=== PATIENT | female | born 1995 | race African-American/Black ===

== ENCOUNTER 2017-03-19 18:28 | Inpatient (IN) | payer BC, OTHER ==
[~2017-03-19] VITALS: Ht 170.2 cm; Wt 92.1 kg
[2017-03-19] MEDS ORDERED: HYDROmorphone 1mg/ml Carpuject IVP ONE ×3 (19:00→23:00)
[2017-03-19 20:17] LABS: APPEARANCE,URINE CLEAR; KETONES,URINE NEGATIVE (NEGATIVE); LEUKOCYTE ESTERASE ,URINE 1+ (NEGATIVE); NITRITE,URINE NEGATIVE (NEGATIVE); PH,URINE 5 (4.5-8.0); PROTEIN,URINE 2+ (NEGATIVE); UROBILINOGEN,URINE NORMAL MG/DL (0.0-1.0)
[2017-03-19 20:19] LABS: MEAN CORPUSCULAR HGB CONC 31.9 G/DL (32.0-36.0); MEAN CORPUSCULAR VOLUME 82 FL (80-99); MEAN PLATELET VOLUME 10.1 FL (6.5-10.1); PLATELET COUNT 245 K/UL (150-450); RED BLOOD COUNT 4.66 M/UL (4.20-5.40); RED CELL DISTRIBUTION WIDTH 14.7 % (11.6-14.8); WHITE BLOOD COUNT 18.9 K/UL (4.8-10.8)
[2017-03-19 20:21] LABS: BACTERIA,URINE FEW /HPF; RBC,URINE 0-2 /HPF (0 - 2); SQUAMOUS EPITHELIAL CELL,UR FEW /LPF (NONE/OCC)
[2017-03-19 20:32] LABS: ALANINE AMINOTRANSFERASE 10 U/L (3-33); ANION GAP 15 (5-15); ASPARTATE AMINO TRANSFERASE 15 U/L (5-40); CALCIUM 9.6 mg/dL (8.6-10.2); CARBON DIOXIDE 19 mEQ/L (20-30); CHLORIDE 104 mEQ/L (98-107); GLOMERULAR FILTRATION RATE > 60 mL/min (>60); HEMOLYSIS 38; LIPASE 24 U/L (< 60); POTASSIUM 4.5 mEQ/L (3.4-4.9); SODIUM 138 mEQ/L (135-145); TOTAL PROTEIN 8.5 g/dL (6.6-8.7)
[2017-03-19 20:42] LABS: BAND NEUTROPHILS % (MANUAL) 0 % (0-8); BASOPHILS % (MANUAL) 0 % (0-2); EOSINOPHILS % (MANUAL) 0 % (0-3); LYMPHOCYTES % (MANUAL) 5 % (20-45); NEUTROPHILS % (MANUAL) 93 % (45-75); PLATELET ESTIMATE ADEQUATE; PLATELET MORPHOLOGY NORMAL; TOTAL CELLS COUNTED 100
[2017-03-19 22:31] VITALS: BP 113/59
--- NOTE | 2017-03-19 23:32 | Emergency Room Report ---
History of Present Illness General Chief Complaint: Abdominal Pain Source: Patient, EMS (PARAM FRANKLIN M.D.) Present Illness HPI 22-year-old female presents to ED for evaluation. States she's been having abdominal pain x2 days. Pain is sharp. 10 out of 10. Nonradiating. Patient notes pain near her colostomy site. Patient had a colostomy performed in August at [facility] because of "colitis". Patient was scheduled to have reanastomosis of her colon in October but was told by surgeon there is too much scar tissue. The surgery had to be delayed. Patient notes nausea and vomiting. Denies fevers or chills. No other aggravating or relieving factors. Denies any other associated symptoms (PARAM FRANKLIN M.D.) Allergies: Coded Allergies: METRONIDAZOLE (Verified Allergy, Unknown, 03/19/17) Patient History Past Medical History: other Past Surgical History: other - colostomy Pertinent Family History: none Social History: Denies: alcohol use, drug use, smoking Last Menstrual Period: 02/21-02/26 Now: No Immunizations: UTD Reviewed Nursing Documentation: PMH: Agreed, PSxH: Agreed (PARAM FRANKLIN M.D.) Nursing Documentation-PMH Past Medical History: No History, Except For (PARAM FRANKLIN M.D.) Review of Systems All Other Systems: negative except mentioned in HPI (PARAM FRANKLIN M.D.) Physical Exam Vital Signs Date Time Temp Pulse Resp B/P Pulse Ox O2 Delivery O2 Flow Rate FiO2 03/19/17 18:19 98.1 80 14 97/63 100 Room Air Sp02 EP Interpretation: reviewed, normal General Appearance: no apparent distress, alert, GCS 15, non-toxic Head: normocephalic, atraumatic Eyes: bilateral eye PERRL, bilateral eye normal inspection ENT: hearing grossly normal, normal pharynx, no angioedema, normal voice Neck: full range of motion, supple/symm/no masses Respiratory: chest non-tender, lungs clear, normal breath sounds, speaking full sentences Cardiovascular #1: regular rate, rhythm, no edema Cardiovascular #2: 2+ carotid (R), 2+ carotid (L), 2+ radial (R), 2+ radial (L) , 2+ dorsalis pedis (R), 2+ dorsalis pedis (L) Gastrointestinal: normal bowel sounds, soft, non-distended, no guarding, no rebound, tenderness, other - colostomy patent Rectal: deferred Genitourinary: normal inspection, no CVA tenderness Musculoskeletal: back normal, gait/station normal, normal range of motion, non- tender Neurologic: alert, oriented x3, responsive, motor strength/tone normal, sensory intact, speech normal Psychiatric: judgement/insight normal, memory normal, mood/affect normal, no suicidal/homicidal ideation Reflexes: 3+ bicep (R), 3+ bicep (L), 3+ tricep (R), 3+ tricep (L), 3+ knee (R) , 3+ knee (L) Skin: normal color, no rash, warm/dry, well hydrated Lymphatic: no adenopathy (PARAM FRANKLIN M.D.) Medical Decision Making Diagnostic Impression: Primary Impression: Small bowel obstruction Additional Impression: H/O colostomy Labs Test 03/19/17 20:00 White Blood Count 18.9 K/UL (4.8-10.8) Red Blood Count 4.66 M/UL (4.20-5.40) Hemoglobin 12.1 G/DL (12.0-16.0) Hematocrit 38.0 % (37.0-47.0) Mean Corpuscular Volume 82 FL (80-99) Mean Corpuscular Hemoglobin 26.0 PG (27.0-31.0) Mean Corpuscular Hemoglobin Concent 31.9 G/DL (32.0-36.0) Red Cell Distribution Width 14.7 % (11.6-14.8) Platelet Count 245 K/UL (150-450) Mean Platelet Volume 10.1 FL (6.5-10.1) Neutrophils (%) (Auto) % (45.0-75.0) Lymphocytes (%) (Auto) % (20.0-45.0) Monocytes (%) (Auto) % (1.0-10.0) Eosinophils (%) (Auto) % (0.0-3.0) Basophils (%) (Auto) % (0.0-2.0) Differential Total Cells Counted 100 Neutrophils % (Manual) 93 % (45-75) Lymphocytes % (Manual) 5 % (20-45) Monocytes % (Manual) 2 % (1-10) Eosinophils % (Manual) 0 % (0-3) Basophils % (Manual) 0 % (0-2) Band Neutrophils 0 % (0-8) Platelet Estimate Adequate Platelet Morphology Normal Red Blood Cell Morphology Normal Urine Color Pale yellow Urine Appearance Clear Urine pH 5 (4.5-8.0) Urine Specific [place] 1.020 (1.005-1.035) Urine Protein 2+ (NEGATIVE) Urine Glucose (UA) Negative (NEGATIVE) Urine Ketones Negative (NEGATIVE) Urine Occult Blood Negative (NEGATIVE) Urine Nitrite Negative (NEGATIVE) Urine Bilirubin Negative (NEGATIVE) Urine Urobilinogen Normal MG/DL (0.0-1.0) Urine Leukocyte Esterase 1+ (NEGATIVE) Urine RBC 0-2 /HPF (0 - 2) Urine WBC 2-4 /HPF (0 - 2) Urine Squamous Epithelial Cells Few /LPF (NONE/OCC) Urine Bacteria Few /HPF (NONE) Urine HCG, Qualitative Negative Sodium Level 138 mEQ/L (135-145) Potassium Level 4.5 mEQ/L (3.4-4.9) Chloride Level 104 mEQ/L (98-107) Carbon Dioxide Level 19 mEQ/L (20-30) Anion Gap 15 (5-15) Blood Urea Nitrogen 10 mg/dL (7-23) Creatinine 1.0 mg/dL (0.5-0.9) Estimat Glomerular Filtration Rate > 60 mL/min (>60) Glucose Level 141 mg/dL (74-106) Calcium Level 9.6 mg/dL (8.6-10.2) Total Bilirubin 0.3 mg/dL (0.0-1.2) Aspartate Amino Transf (AST/SGOT) 15 U/L (5-40) Alanine Aminotransferase (ALT/SGPT) 10 U/L (3-33) Alkaline Phosphatase 58 U/L (35-104) Total Protein 8.5 g/dL (6.6-8.7) Albumin 4.3 g/dL (3.5-5.2) Globulin 4.2 g/dL Albumin/Globulin Ratio 1.0 (1.0-2.7) Lipase 24 U/L (< 60) Human Chorionic Gonadotropin, Quant < 1 mIU/mL (PARAM FRANKLIN M.D.) ER Course I agree with the above assessment by Dr. Franklin. Unable to contact PMD surgeon (Sherman Díaz). [facility] closed to saturation without beds. Discussed with Transfer [facility]. Antibiotics begun (leukocytosis). Still pain. Dilaudid repeated (high pain tolerance). Exam - abdomen is soft. There is some guarding, but no referred pain. No rebound. At this time, not a surgical abdomen. Discussed with Dr. Yang who agrees to consult. I stated he does not need to come in tonight. Discussed with Dr. Hoskins. BP slightly low after Dilaudid. Hydration continued. BP improved. (Dave Rosen M.D.) CT/MRI/US Diagnostic Results CT/MRI/US Diagnostic Results : Imaging Test Ordered: CT A/P Impression evidence of bowel obstruction with transition point in RLQ near colostomy site (PARAM FRANKLIN M.D.) Last Vital Signs Date Time Temp Pulse Resp B/P Pulse Ox O2 Delivery O2 Flow Rate FiO2 03/19/17 22:31 98.1 85 13 113/59 100 Room Air Status: improved (PARAM FRANKLIN M.D.) Last Vital Signs Date Time Temp Pulse Resp B/P Pulse Ox O2 Delivery O2 Flow Rate FiO2 03/20/17 04:00 98.7 80 20 132/72 98 Room Air Status: improved (Dave Rosen M.D.) Disposition: ADMITTED INPATIENT Condition: Serious Referrals: NON PHYSICIAN (PCP) PARAM FRANKLIN M.D. Mar 19, 2017 23:32 Dave Rosen M.D. Mar 20, 2017 00:59
[2017-03-20] MEDS ORDERED: Cefepime 1gm vial ONE (00:29)
[2017-03-20] MEDS ORDERED: Cefepime HCl 1 GM in D5W 55 ML IVPB SCH (00:30)
[2017-03-20] MEDS ORDERED: HYDROmorphone 1mg/ml Carpuject IVP PRN ×2 (00:30→17:00)
[2017-03-20] MEDS ORDERED: Cefepime HCl 1 GM in D5W 55 ML IVPB ONE (00:30)
[2017-03-20 00:36] VITALS: BP 100/46
[2017-03-20] MEDS ORDERED: AMBIEN10 M1 ORAL (00:52)
[2017-03-20] MEDS ORDERED: TOPIRAMATE100 MG ORAL (00:52)
[2017-03-20] MEDS ORDERED: SYNTHROID25 MCG ORAL (00:52)
[2017-03-20] MEDS ORDERED: LEXAPRO20 MG ORAL (00:52)
[2017-03-20 04:00] VITALS: BP 132/72
[2017-03-20 08:07] VITALS: BP 136/76
[2017-03-20] MEDS: Cefepime 2gm/D5W 110ml IV SCH ×4 (09:00→20:54)
[2017-03-20] MEDS: Heparin 5000 units/ml inj SUBQ SCH ×2 (09:02→20:57)
--- NOTE | 2017-03-20 10:45 | General Progress Note ---
Progress Note Progress Note Chart reviewed, pt examined, consult dictated, case discussed with her primary surgeon, Dr Díaz. Pt has a partial SBO at the ileostomy site. As per Dr Díaz's instructions we have inserted a 30 Fr red Martínez catheter in the ileostomy resulting in 1 liter of drainage. We will obtain a KUB now. Sae Yang MD Mar 20, 2017 10:45
[2017-03-20 11:46] VITALS: BP 105/62
--- NOTE | 2017-03-20 13:03 | Diagnostic Imaging Report ---
Indication: Abdominal pain and distention Comparison: None Single view of the abdomen obtained Findings: Some dilated small bowel demonstrated within the abdomen. There is a catheter projected over the right lower quadrant. The tip of the catheter is projected over a lead shield which obscures the pelvis. Impression: Distended small bowel are nonspecific: Obstruction versus ileus. Right lower quadrant ileostomy catheter.
--- NOTE | 2017-03-20 13:35 | History and Physical ---
History of Present Illness General Date patient seen: Mar 20, 2017 Time patient seen: 13:35 Reason for Hospitalization: Abdominal Pain Present Illness HPI 21 year old with pmh of ulcerative colitis s/p laparoscopic total colectomy on 07/2016 s/p ileostomy revision 10/2016, hypothyroidism, and MDD/anxiety who presents with worsening abd pain. She states she's been having abdominal pain x2 days. Pain is sharp lower abdominal, 10/10 in intensity, nonradiating.Patient notes pain near her ostomy site. Patient was scheduled to have reanastomosis of her colon in October but was told by surgeon there is too much scar tissue and that she needed to lose weight first. The surgery had to be delayed. Patient notes nausea and vomiting. Denies fevers or chills. No other aggravating or relieving factors. Denies any other associated symptoms. Allergies: Coded Allergies: METRONIDAZOLE (Verified Allergy, Unknown, 03/19/17) Medication History Scheduled Escitalopram Oxalate* (Lexapro*), 20 MG ORAL BEDTIME, (Reported) Levothyroxine Sodium* (Synthroid*), 50 MCG ORAL DAILY, (Reported) Topiramate* (Topamax*), 200 MG ORAL BEDTIME, (Reported) Scheduled PRN Zolpidem Tartrate* (Ambien*), 10 MG ORAL HS PRN for Insomnia, (Reported) Patient History Healthcare decision maker Resuscitation status Full Code Advanced Directive on File Yes Past Medical/Surgical History Past Medical/Surgical History: (1) Ulcerative colitis (2) Hypothyroidism (3) Anxiety (4) Depression Family History Family History: Patient reports no known family medical history. Social History Social History: (1) No significant social history Review of Systems Constitutional: Reports: no symptoms Eye: Reports: no symptoms ENT: Reports: no symptoms Respiratory: Reports: no symptoms Cardiovascular: Reports: no symptoms Gastrointestinal: Reports: abdominal pain, nausea, vomiting Genitourinary: Reports: no symptoms Musculoskeletal: Reports: no symptoms Skin: Reports: no symptoms Psychiatric: Reports: no symptoms Neurological: Reports: no symptoms Endocrine: Reports: no symptoms Hematologic/Lymphatic: Reports: no symptoms Physical Exam Physical Exam Narrative General: alert, cooperative, no distress, appears stated age Head: normocephalic, without obvious abnormality, atraumatic Eyes: conjunctivae/corneas clear. PERRL, EOM's intact Throat: lips, mucosa, and tongue normal. MMM Neck: supple, symmetrical, trachea midline, and no JVD Lungs: clear to auscultation bilaterally Heart: regular rate and rhythm, S1, S2 normal, no murmur, click, rub or gallop Abdomen: soft, +TTP of lower abd, non-distended, +ostomy c/d/i Extremities: extremities normal, atraumatic, no cyanosis or edema Pulses: 2+ and symmetric Skin: skin color, texture, turgor normal; no rashes or lesions Neurologic: grossly normal, no focal deficits Last 24 Hour Vital Signs Date Time Temp Pulse Resp B/P Pulse Ox O2 Delivery O2 Flow Rate FiO2 03/20/17 11:46 98.2 78 21 105/62 98 Room Air 03/20/17 11:12 98.2 03/20/17 08:34 98.2 03/20/17 08:07 98.2 90 20 136/76 95 Room Air 03/20/17 04:00 98.7 80 20 132/72 98 Room Air 03/20/17 01:04 98.1 83 14 100/46 96 Room Air 03/20/17 00:36 98.1 83 14 100/46 96 Room Air 03/19/17 23:54 98.1 03/19/17 23:54 98.1 03/19/17 23:53 98.1 03/19/17 22:31 98.1 85 13 113/59 100 Room Air 03/19/17 18:19 98.1 80 14 97/63 100 Room Air Intake and Output 03/19/17 03/20/17 19:00 07:00 Intake Total 1300 ml Balance 1300 ml Intake IV Total 1300 ml # Voids 2 Laboratory Tests Test 03/19/17 20:00 White Blood Count 18.9 K/UL (4.8-10.8) H Red Blood Count 4.66 M/UL (4.20-5.40) Hemoglobin 12.1 G/DL (12.0-16.0) Hematocrit 38.0 % (37.0-47.0) Mean Corpuscular Volume 82 FL (80-99) Mean Corpuscular Hemoglobin 26.0 PG (27.0-31.0) L Mean Corpuscular Hemoglobin Concent 31.9 G/DL (32.0-36.0) L Red Cell Distribution Width 14.7 % (11.6-14.8) Platelet Count 245 K/UL (150-450) Mean Platelet Volume 10.1 FL (6.5-10.1) Neutrophils (%) (Auto) % (45.0-75.0) Lymphocytes (%) (Auto) % (20.0-45.0) Monocytes (%) (Auto) % (1.0-10.0) Eosinophils (%) (Auto) % (0.0-3.0) Basophils (%) (Auto) % (0.0-2.0) Differential Total Cells Counted 100 Neutrophils % (Manual) 93 % (45-75) H Lymphocytes % (Manual) 5 % (20-45) L Monocytes % (Manual) 2 % (1-10) Eosinophils % (Manual) 0 % (0-3) Basophils % (Manual) 0 % (0-2) Band Neutrophils 0 % (0-8) Platelet Estimate Adequate Platelet Morphology Normal Red Blood Cell Morphology Normal Urine Color Pale yellow Urine Appearance Clear Urine pH 5 (4.5-8.0) Urine Specific [place] 1.020 (1.005-1.035) Urine Protein 2+ (NEGATIVE) H Urine Glucose (UA) Negative (NEGATIVE) Urine Ketones Negative (NEGATIVE) Urine Occult Blood Negative (NEGATIVE) Urine Nitrite Negative (NEGATIVE) Urine Bilirubin Negative (NEGATIVE) Urine Urobilinogen Normal MG/DL (0.0-1.0) Urine Leukocyte Esterase 1+ (NEGATIVE) H Urine RBC 0-2 /HPF (0 - 2) Urine WBC 2-4 /HPF (0 - 2) Urine Squamous Epithelial Cells Few /LPF (NONE/OCC) Urine Bacteria Few /HPF (NONE) Urine HCG, Qualitative Negative Sodium Level 138 mEQ/L (135-145) Potassium Level 4.5 mEQ/L (3.4-4.9) Chloride Level 104 mEQ/L (98-107) Carbon Dioxide Level 19 mEQ/L (20-30) L Anion Gap 15 (5-15) Blood Urea Nitrogen 10 mg/dL (7-23) Creatinine 1.0 mg/dL (0.5-0.9) H Estimat Glomerular Filtration Rate > 60 mL/min (>60) Glucose Level 141 mg/dL (74-106) H Calcium Level 9.6 mg/dL (8.6-10.2) Total Bilirubin 0.3 mg/dL (0.0-1.2) Aspartate Amino Transf (AST/SGOT) 15 U/L (5-40) Alanine Aminotransferase (ALT/SGPT) 10 U/L (3-33) Alkaline Phosphatase 58 U/L (35-104) Total Protein 8.5 g/dL (6.6-8.7) Albumin 4.3 g/dL (3.5-5.2) Globulin 4.2 g/dL Albumin/Globulin Ratio 1.0 (1.0-2.7) Lipase 24 U/L (< 60) Human Chorionic Gonadotropin, Quant < 1 mIU/mL Height (Feet): 5 Height (Inches): 7.00 Weight (Pounds): 203 Medications Current Medications Medications (Trade) Dose Ordered Sig/Xander Route PRN Reason Start Time Stop Time Status Last Admin Dose Admin Cefepime HCl/ Dextrose (Maxipime/D5W) 110 ml @ 220 mls/hr EVERY 12 HOURS IV 03/20/17 09:00 03/27/17 08:59 03/20/17 09:00 Dextrose STAT PRN IV Hypoglycemia 03/20/17 00:30 04/19/17 00:29 Heparin Sodium (Porcine) (Heparin 5000 units/ml) 5,000 units EVERY 12 HOURS SUBQ 03/20/17 09:00 04/19/17 08:59 03/20/17 09:02 Hydromorphone HCl (Dilaudid) 1 mg Q4H PRN IVP Moderate Pain (Pain Scale 4-6) 03/20/17 00:30 03/27/17 00:29 Hydromorphone HCl (Dilaudid) 2 mg Q2H PRN IVP Severe Pain (Pain Scale 7-10) 03/20/17 10:15 03/27/17 10:14 03/20/17 12:32 Ondansetron HCl (Zofran) 4 mg Q4H PRN IVP Nausea & Vomiting 03/20/17 07:30 04/19/17 07:29 03/20/17 08:04 Sodium Chloride (Sodium Chloride 1000ml bag) 1,000 ml @ 75 mls/hr [id number] 03/20/17 01:30 04/19/17 01:29 03/20/17 02:19 Assessment/Plan Problem List: (1) Small bowel obstruction ICD Codes: K56.69 - Other intestinal obstruction SNOMED: 714066946 (2) Leukocytosis ICD Codes: D72.829 - Elevated white blood cell count, unspecified SNOMED: 706640231, 102409799 (3) Ulcerative colitis ICD Codes: K51.90 - Ulcerative colitis, unspecified, without complications SNOMED: 40441794 (4) Anxiety ICD Codes: F41.9 - Anxiety disorder, unspecified SNOMED: 86724429 (5) Depression ICD Codes: F32.9 - Major depressive disorder, single episode, unspecified SNOMED: 19666545 (6) Hypothyroidism ICD Codes: E03.9 - Hypothyroidism, unspecified SNOMED: 27448884 Status: stable Assessment/Plan CT a/p showed evidence of bowel obstruction with transition point in RLQ near colostomy site Admit inpt Surgery consulted GI consulted NPO IVFs Serial abd exams Pain mgmt consulted as pt c/o poor pain control s/p NGT placement s/p red rubber catheter in the ileostomy for decompression w/ 1L drainage Monitor output Repeat KUB Cont home meds HSQ for DVT ppx FULL CODE D/w surgery, GI, pt/family regarding mgmt and idspo [place] Denise M.D. Mar 20, 2017 13:35
--- NOTE | 2017-03-20 14:31 | Consultation ---
DATE OF CONSULTATION: 03/20/2017 SURGICAL CONSULTATION REASON FOR CONSULTATION: Small bowel obstruction. HISTORY OF PRESENT ILLNESS: This is a 22-year-old, 0, para 0, female, underwent a subtotal colectomy with end ileostomy and Jameel procedure seven months ago at [facility]. The patient had a 7-year history of ulcerative colitis. She had studies in October of 2016 with the intent of forming an ileal J-pouch, but this could not be done due to too much swelling of the mesenteric fat. The patient presented with a two-day history of cramping abdominal pain, nausea, and vomiting. She noted decreased output from the ileostomy. She states that she underwent an endoscopy of the ileostomy 9 days ago. PAST MEDICAL HISTORY: See history of present illness. MEDICATIONS: Include Lexapro 20 mg at bedtime, levothyroxine 50 mcg daily, Topamax 200 mg at bedtime, Ambien 10 mg p.r.n. insomnia. ALLERGIES: Metronidazole. SOCIAL HISTORY: Tobacco, none. Alcohol, none. Occupation, college student. FAMILY HISTORY: Negative for diabetes, heart disease, and malignancy. REVIEW OF SYSTEMS: Essentially negative. She is a 0, para 0 female. Last menstrual period was 02/21/2017. PHYSICAL EXAMINATION: GENERAL: Reveals a morbidly obese female, complaining of abdominal pain. VITAL SIGNS: Temperature 98.2 degrees, blood pressure 136/76, pulse 90, and respirations 20. HEENT: Normocephalic. Pupils are equal and reactive to light. There was no scleral icterus. NECK: Supple without adenopathy. LUNGS: Clear. HEART: Showed a regular rhythm. ABDOMEN: Abdomen was protuberant. Palpation reveals some tenderness throughout the ileostomy is in place in the right lower quadrant. There is minimal liquid and some old stool in the bag. EXTREMITIES: Showed no edema. ADMISSION LABS: Urinalysis was negative. CBC showed a white blood count of 18,900, hemoglobin 12.1 g%, hematocrit 38%, and platelet count 245,000. Clinical chemistry showed a sodium of 138, potassium 4.5, chloride 104, bicarbonate 19, BUN 10, creatinine 1.0, and glucose 141. Liver panel showed a total bilirubin of 0.3. SGOT 10 and SGPT 15. Alkaline phosphatase is 58. Lipase is normal at 24. Quantitative HCG was less than 1. A CT scan of the abdomen and pelvis showed mildly dilated small bowel throughout. There was no free air. There was no stranding or abscess formation. IMPRESSION: Partial small bowel obstruction, possibly secondary to ileostomy site. PLAN: We have conferred with Dr. Díaz her original surgeon, he advises us to insert the red rubber catheter in the ileostomy to try to obtain decompression. We will also place a nasogastric tube as soon as possible. Sae Yang M.D. DR: TERRI JOB#: [id number] CC: TOYA
--- NOTE | 2017-03-20 15:48 | Diagnostic Imaging Report ---
Indication: Abdominal pain Technique: Continuous helical transaxial imaging of the abdomen and pelvis was obtained from the lung bases to the pubic symphysis during intravenous contrast administration. Coronal 2-D reformats were also obtained. Study obtained in a Siemens sensation [address] Total Dose length Product (DLP): [address] Dose Index Volume (CTDIvol): 20 mGy Comparison: None Findings: Mild to moderate dilatation of small bowel loops noted diffusely. Small bowel is also fluid-filled. There is an apparent transition at the ileostomy site. However one should correlate with the operative ileostomy clinically before making a determination that this is due to bowel obstruction. In addition, oral contrast was not administered, which would've been helpful. There is no free air. There is no free fluid or wall thickening. Patient is had a total colectomy. The rectal stump noted. The uterus and urinary bladder are grossly unremarkable in appearance. There is a small left ovarian cyst measuring about 2.5 cm incidentally noted. Solid organs including the liver, spleen, pectus, kidneys appear normal. Gallbladder is unremarkable. There is mild left basal atelectasis. Impression: Possible bowel obstruction at the ileostomy site. Please correlate with the ileostomy output. Evaluation with oral contrast may be of benefit and is recommended. It is possible that the findings on the basis of a diffuse generalized ileus/enteritis. Status post total colectomy 2.5 cm cyst left ovary mild left basal atelectasis Findings discussed and reviewed with Dr. Yang The CT scanner at [facility] is accredited by the [employer] and the scans are performed using dose optimization techniques as appropriate to a performed exam including Automatic Exposure control.
[2017-03-20 15:53] VITALS: BP 107/63
--- NOTE | 2017-03-20 16:07 | GI Initial Consult Note ---
History of Present Illness General Date patient seen: Mar 20, 2017 Time patient seen: 11:00 Reason for Hospitalization: Abdominal Pain Referring physician: ALLISON MAGALLANES Reason for Consultation: ABODMINAL PAIN Present Illness Home Meds Reported Medications Escitalopram Oxalate* (LEXAPRO*) 20 Mg Tablet, 20 MG ORAL BEDTIME, TAB 03/20/17 Topiramate* (TOPAMAX*) 100 Mg Tablet, 200 MG ORAL BEDTIME, #60 TAB 0 Refills 03/20/17 Zolpidem Tartrate* (AMBIEN*) 10 Mg Tablet, 10 MG ORAL HS Y for Insomnia, TAB 03/20/17 Levothyroxine Sodium* (SYNTHROID*) 25 Mcg Tablet, 50 MCG ORAL DAILY, TAB Take in the morning on an empty stomach, at least 30 minutes before food. 03/20/17 Allergies: Coded Allergies: METRONIDAZOLE (Verified Allergy, Unknown, 03/19/17) Physical Exam Vital Signs Date Time Temp Pulse Resp B/P Pulse Ox O2 Delivery O2 Flow Rate FiO2 03/19/17 18:19 98.1 80 14 97/63 100 Room Air Labs Laboratory Tests Test 03/19/17 20:00 White Blood Count 18.9 K/UL (4.8-10.8) H Red Blood Count 4.66 M/UL (4.20-5.40) Hemoglobin 12.1 G/DL (12.0-16.0) Hematocrit 38.0 % (37.0-47.0) Mean Corpuscular Volume 82 FL (80-99) Mean Corpuscular Hemoglobin 26.0 PG (27.0-31.0) L Mean Corpuscular Hemoglobin Concent 31.9 G/DL (32.0-36.0) L Red Cell Distribution Width 14.7 % (11.6-14.8) Platelet Count 245 K/UL (150-450) Mean Platelet Volume 10.1 FL (6.5-10.1) Neutrophils (%) (Auto) % (45.0-75.0) Lymphocytes (%) (Auto) % (20.0-45.0) Monocytes (%) (Auto) % (1.0-10.0) Eosinophils (%) (Auto) % (0.0-3.0) Basophils (%) (Auto) % (0.0-2.0) Differential Total Cells Counted 100 Neutrophils % (Manual) 93 % (45-75) H Lymphocytes % (Manual) 5 % (20-45) L Monocytes % (Manual) 2 % (1-10) Eosinophils % (Manual) 0 % (0-3) Basophils % (Manual) 0 % (0-2) Band Neutrophils 0 % (0-8) Platelet Estimate Adequate Platelet Morphology Normal Red Blood Cell Morphology Normal Urine Color Pale yellow Urine Appearance Clear Urine pH 5 (4.5-8.0) Urine Specific [place] 1.020 (1.005-1.035) Urine Protein 2+ (NEGATIVE) H Urine Glucose (UA) Negative (NEGATIVE) Urine Ketones Negative (NEGATIVE) Urine Occult Blood Negative (NEGATIVE) Urine Nitrite Negative (NEGATIVE) Urine Bilirubin Negative (NEGATIVE) Urine Urobilinogen Normal MG/DL (0.0-1.0) Urine Leukocyte Esterase 1+ (NEGATIVE) H Urine RBC 0-2 /HPF (0 - 2) Urine WBC 2-4 /HPF (0 - 2) Urine Squamous Epithelial Cells Few /LPF (NONE/OCC) Urine Bacteria Few /HPF (NONE) Urine HCG, Qualitative Negative Sodium Level 138 mEQ/L (135-145) Potassium Level 4.5 mEQ/L (3.4-4.9) Chloride Level 104 mEQ/L (98-107) Carbon Dioxide Level 19 mEQ/L (20-30) L Anion Gap 15 (5-15) Blood Urea Nitrogen 10 mg/dL (7-23) Creatinine 1.0 mg/dL (0.5-0.9) H Estimat Glomerular Filtration Rate > 60 mL/min (>60) Glucose Level 141 mg/dL (74-106) H Calcium Level 9.6 mg/dL (8.6-10.2) Total Bilirubin 0.3 mg/dL (0.0-1.2) Aspartate Amino Transf (AST/SGOT) 15 U/L (5-40) Alanine Aminotransferase (ALT/SGPT) 10 U/L (3-33) Alkaline Phosphatase 58 U/L (35-104) Total Protein 8.5 g/dL (6.6-8.7) Albumin 4.3 g/dL (3.5-5.2) Globulin 4.2 g/dL Albumin/Globulin Ratio 1.0 (1.0-2.7) Lipase 24 U/L (< 60) Human Chorionic Gonadotropin, Quant < 1 mIU/mL Current Medications Current Medications Medications (Trade) Dose Ordered Sig/Xander Route PRN Reason Start Time Stop Time Status Last Admin Dose Admin Cefepime HCl/ Dextrose (Maxipime/D5W) 110 ml @ 220 mls/hr EVERY 12 HOURS IV 03/20/17 09:00 03/27/17 08:59 03/20/17 09:00 Dextrose STAT PRN IV Hypoglycemia 03/20/17 00:30 04/19/17 00:29 Escitalopram Oxalate 30 mg 30 mg QHS ORAL 03/20/17 21:00 04/19/17 20:59 Heparin Sodium (Porcine) (Heparin 5000 units/ml) 5,000 units EVERY 12 HOURS SUBQ 03/20/17 09:00 04/19/17 08:59 03/20/17 09:02 Hydromorphone HCl (Dilaudid) 1 mg Q4H PRN IVP Moderate Pain (Pain Scale 4-6) 03/20/17 00:30 03/27/17 00:29 Hydromorphone HCl (Dilaudid) 2 mg Q2H PRN IVP Severe Pain (Pain Scale 7-10) 03/20/17 10:15 03/27/17 10:14 03/20/17 14:26 Levothyroxine Sodium (Synthroid) 50 mcg ACBREAKFAST ORAL 03/21/17 06:30 04/20/17 06:29 Ondansetron HCl (Zofran) 4 mg Q4H PRN IVP Nausea & Vomiting 03/20/17 07:30 04/19/17 07:29 03/20/17 08:04 Sodium Chloride (Sodium Chloride 1000ml bag) 1,000 ml @ 125 mls/hr Q8H IVLG 03/20/17 16:15 04/19/17 16:14 Topiramate (Topamax) 200 mg BEDTIME ORAL 03/20/17 21:00 04/19/17 20:59 Zolpidem Tartrate (Ambien) 5 mg QHS ORAL 03/20/17 21:00 04/19/17 20:59 Emi Pierre N.PEdison Mar 20, 2017 16:07
--- NOTE | 2017-03-20 16:13 | GI Initial Consult Note ---
History of Present Illness General Date patient seen: Mar 20, 2017 Time patient seen: 10:00 Reason for Hospitalization: Abdominal Pain Referring physician: ALLISON MAGALLANES Reason for Consultation: ABODMINAL PAIN Present Illness HPI 22-year-old female presents to ED for evaluation. States she's been having abdominal pain x2 days. Pain is sharp. 10 out of 10. Nonradiating. Patient notes pain near her colostomy site. Patient had a colostomy performed in August at [facility] because of "colitis". Patient was scheduled to have reanastomosis of her colon in October but was told by surgeon there is too much scar tissue. The surgery had to be delayed. Patient notes nausea and vomiting. Denies fevers or chills. No other aggravating or relieving factors. Denies any other associated symptoms GI Consult. HPI as noted above. GI consulted for abdominal pain 2/2 to possible obstruction in RLQ near colostomy as shown on CT AP. Presents today with colostomy present and leukocytosis. Patient was seen by surgery where a Red Spenser was inserted into the colostomy site and yield a large amount diarrhea. The patient expressed relief as well. Home Meds Reported Medications Escitalopram Oxalate* (LEXAPRO*) 20 Mg Tablet, 20 MG ORAL BEDTIME, TAB 03/20/17 Topiramate* (TOPAMAX*) 100 Mg Tablet, 200 MG ORAL BEDTIME, #60 TAB 0 Refills 03/20/17 Zolpidem Tartrate* (AMBIEN*) 10 Mg Tablet, 10 MG ORAL HS Y for Insomnia, TAB 03/20/17 Levothyroxine Sodium* (SYNTHROID*) 25 Mcg Tablet, 50 MCG ORAL DAILY, TAB Take in the morning on an empty stomach, at least 30 minutes before food. 03/20/17 Med list reviewed/reconciled: Yes Allergies: Coded Allergies: METRONIDAZOLE (Verified Allergy, Unknown, 03/19/17) Patient History History Provided By: Patient, Medical Record PM Narrative Past Medical History: other Past Surgical History: other - colostomy Pertinent Family History: none Social History: Denies: alcohol use, drug use, smoking Last Menstrual Period: 02/21-02/26 Now: No Immunizations: UTD Review of Systems All Other Systems: negative except mentioned in HPI Physical Exam Vital Signs Date Time Temp Pulse Resp B/P Pulse Ox O2 Delivery O2 Flow Rate FiO2 03/19/17 18:19 98.1 80 14 97/63 100 Room Air Sp02 EP Interpretation: reviewed Labs Laboratory Tests Test 03/19/17 20:00 White Blood Count 18.9 K/UL (4.8-10.8) H Red Blood Count 4.66 M/UL (4.20-5.40) Hemoglobin 12.1 G/DL (12.0-16.0) Hematocrit 38.0 % (37.0-47.0) Mean Corpuscular Volume 82 FL (80-99) Mean Corpuscular Hemoglobin 26.0 PG (27.0-31.0) L Mean Corpuscular Hemoglobin Concent 31.9 G/DL (32.0-36.0) L Red Cell Distribution Width 14.7 % (11.6-14.8) Platelet Count 245 K/UL (150-450) Mean Platelet Volume 10.1 FL (6.5-10.1) Neutrophils (%) (Auto) % (45.0-75.0) Lymphocytes (%) (Auto) % (20.0-45.0) Monocytes (%) (Auto) % (1.0-10.0) Eosinophils (%) (Auto) % (0.0-3.0) Basophils (%) (Auto) % (0.0-2.0) Differential Total Cells Counted 100 Neutrophils % (Manual) 93 % (45-75) H Lymphocytes % (Manual) 5 % (20-45) L Monocytes % (Manual) 2 % (1-10) Eosinophils % (Manual) 0 % (0-3) Basophils % (Manual) 0 % (0-2) Band Neutrophils 0 % (0-8) Platelet Estimate Adequate Platelet Morphology Normal Red Blood Cell Morphology Normal Urine Color Pale yellow Urine Appearance Clear Urine pH 5 (4.5-8.0) Urine Specific [place] 1.020 (1.005-1.035) Urine Protein 2+ (NEGATIVE) H Urine Glucose (UA) Negative (NEGATIVE) Urine Ketones Negative (NEGATIVE) Urine Occult Blood Negative (NEGATIVE) Urine Nitrite Negative (NEGATIVE) Urine Bilirubin Negative (NEGATIVE) Urine Urobilinogen Normal MG/DL (0.0-1.0) Urine Leukocyte Esterase 1+ (NEGATIVE) H Urine RBC 0-2 /HPF (0 - 2) Urine WBC 2-4 /HPF (0 - 2) Urine Squamous Epithelial Cells Few /LPF (NONE/OCC) Urine Bacteria Few /HPF (NONE) Urine HCG, Qualitative Negative Sodium Level 138 mEQ/L (135-145) Potassium Level 4.5 mEQ/L (3.4-4.9) Chloride Level 104 mEQ/L (98-107) Carbon Dioxide Level 19 mEQ/L (20-30) L Anion Gap 15 (5-15) Blood Urea Nitrogen 10 mg/dL (7-23) Creatinine 1.0 mg/dL (0.5-0.9) H Estimat Glomerular Filtration Rate > 60 mL/min (>60) Glucose Level 141 mg/dL (74-106) H Calcium Level 9.6 mg/dL (8.6-10.2) Total Bilirubin 0.3 mg/dL (0.0-1.2) Aspartate Amino Transf (AST/SGOT) 15 U/L (5-40) Alanine Aminotransferase (ALT/SGPT) 10 U/L (3-33) Alkaline Phosphatase 58 U/L (35-104) Total Protein 8.5 g/dL (6.6-8.7) Albumin 4.3 g/dL (3.5-5.2) Globulin 4.2 g/dL Albumin/Globulin Ratio 1.0 (1.0-2.7) Lipase 24 U/L (< 60) Human Chorionic Gonadotropin, Quant < 1 mIU/mL General Appearance: well appearing, no apparent distress, alert Head: normocephalic EENT: normal ENT inspection Neck: supple Respiratory: normal breath sounds, no respiratory distress Cardiovascular: normal rate Gastrointestinal: normal inspection, non tender, soft Rectal: deferred Musculoskeletal: normal inspection, back normal Neurologic: alert, oriented x3, responsive Psychiatric: normal inspection, judgement/insight normal, memory normal Skin: normal inspection, normal color, no rash, warm/dry Lymphatic: normal inspection, no adenopathy Current Medications Current Medications Medications (Trade) Dose Ordered Sig/Xander Route PRN Reason Start Time Stop Time Status Last Admin Dose Admin Cefepime HCl/ Dextrose (Maxipime/D5W) 110 ml @ 220 mls/hr EVERY 12 HOURS IV 03/20/17 09:00 03/27/17 08:59 03/20/17 09:00 Dextrose STAT PRN IV Hypoglycemia 03/20/17 00:30 04/19/17 00:29 Escitalopram Oxalate 30 mg 30 mg QHS ORAL 03/20/17 21:00 04/19/17 20:59 Heparin Sodium (Porcine) (Heparin 5000 units/ml) 5,000 units EVERY 12 HOURS SUBQ 03/20/17 09:00 04/19/17 08:59 03/20/17 09:02 Hydromorphone HCl (Dilaudid) 1 mg Q4H PRN IVP Moderate Pain (Pain Scale 4-6) 03/20/17 00:30 03/27/17 00:29 Hydromorphone HCl (Dilaudid) 2 mg Q2H PRN IVP Severe Pain (Pain Scale 7-10) 03/20/17 10:15 03/27/17 10:14 03/20/17 14:26 Levothyroxine Sodium (Synthroid) 50 mcg ACBREAKFAST ORAL 03/21/17 06:30 04/20/17 06:29 Ondansetron HCl (Zofran) 4 mg Q4H PRN IVP Nausea & Vomiting 03/20/17 07:30 04/19/17 07:29 03/20/17 08:04 Sodium Chloride (Sodium Chloride 1000ml bag) 1,000 ml @ 125 mls/hr Q8H IVLG 03/20/17 16:15 04/19/17 16:14 Topiramate (Topamax) 200 mg BEDTIME ORAL 03/20/17 21:00 04/19/17 20:59 Zolpidem Tartrate (Ambien) 5 mg QHS ORAL 03/20/17 21:00 04/19/17 20:59 GI: Plan Problems: (1) Small bowel obstruction (2) H/O colostomy (3) Leukocytosis Plan fu surgical recs bowel decompression >> red spenser to drainage + NGT to LIS maintain NPO + IVFs repeat KUB am ppi abx fu labs Discussed with Dr. Iverson. Thank you for referring this patient, we will follow. Emi Pierre N.P. Mar 20, 2017 16:13
[2017-03-20 20:00] VITALS: BP 98/53
[2017-03-20] MEDS: DiphenhydrAMINE 50mg/ml Inj IVP PRN (20:28)
[2017-03-20] MEDS ORDERED: Zolpidem 5mg tab ORAL SCH (21:00)
[2017-03-20] MEDS ORDERED: Topiramate 100mg tab ORAL SCH (21:00)
[2017-03-21] VITALS: BP 105/64
[2017-03-21] MEDS: DiphenhydrAMINE 50mg/ml Inj IVP PRN ×3 (03:06→15:43)
[2017-03-21 04:00] VITALS: BP 104/56
[2017-03-21 07:26] LABS: BASOPHILS % (AUTO) 0.4 % (0.0-2.0); LYMPHOCYTES % (AUTO) 18.3 % (20.0-45.0); MEAN CORPUSCULAR HEMOGLOBIN 25.2 PG (27.0-31.0); MEAN CORPUSCULAR HGB CONC 30.5 G/DL (32.0-36.0); MEAN CORPUSCULAR VOLUME 83 FL (80-99); MEAN PLATELET VOLUME 9.3 FL (6.5-10.1); MONOCYTES % (AUTO) 5.7 % (1.0-10.0); NEUTROPHILS % (AUTO) 70.6 % (45.0-75.0); PLATELET COUNT 245 K/UL (150-450); RED BLOOD COUNT 3.87 M/UL (4.20-5.40); RED CELL DISTRIBUTION WIDTH 14.5 % (11.6-14.8); WHITE BLOOD COUNT 12.1 K/UL (4.8-10.8)
[2017-03-21 07:47] LABS: MAGNESIUM 1.6 mg/dL (1.7-2.5); PHOSPHORUS 2.4 mg/dL (2.5-4.8)
[2017-03-21 07:51] LABS: ANION GAP 9 (5-15); CALCIUM 9.1 mg/dL (8.6-10.2); CARBON DIOXIDE 24 mEQ/L (20-30); CHLORIDE 109 mEQ/L (98-107); CREATININE 0.8 mg/dL (0.5-0.9); GLOMERULAR FILTRATION RATE > 60 mL/min (>60); HEMOLYSIS 0; POTASSIUM 3.7 mEQ/L (3.4-4.9); SODIUM 142 mEQ/L (135-145)
[2017-03-21 08:00] VITALS: BP 111/66
[2017-03-21] MEDS ORDERED: Tubing IV Secondary IV ONE ×3 (09:04→20:19)
[2017-03-21] MEDS: Heparin 5000 units/ml inj SUBQ SCH (09:16)
[2017-03-21] MEDS: Cefepime 2gm/D5W 110ml IV SCH ×2 (09:17)
--- NOTE | 2017-03-21 09:59 | General Progress Note ---
Progress Note Progress Note Afebrile. Pt is feeling better, some abdominal cramps persist. Abdomen is softer , no drainage from NG tube, ileostomy tube is draining well. WBC decreased to 12.1. We will d/c her NG tube, will obtain an UGI with SBFT. She can have ice chips PO. Sae Yang MD Mar 21, 2017 09:59
--- NOTE | 2017-03-21 10:29 | Consultation ---
History of Present Illness General Date patient seen: Mar 21, 2017 Chief Complaint: Abdominal Pain Referring physician: ALLISON MAGALLANES Reason for Consultation: ABODMINAL PAIN Present Illness Allergies: Coded Allergies: METRONIDAZOLE (Verified Allergy, Unknown, 03/19/17) Medication History Scheduled Escitalopram Oxalate* (Lexapro*), 20 MG ORAL BEDTIME, (Reported) Levothyroxine Sodium* (Synthroid*), 50 MCG ORAL DAILY, (Reported) Topiramate* (Topamax*), 200 MG ORAL BEDTIME, (Reported) Scheduled PRN Zolpidem Tartrate* (Ambien*), 10 MG ORAL HS PRN for Insomnia, (Reported) Patient History Healthcare decision maker Resuscitation status Full Code Advanced Directive on File Yes Physical Exam Last 24 Hour Vital Signs Date Time Temp Pulse Resp B/P Pulse Ox O2 Delivery O2 Flow Rate FiO2 03/21/17 08:00 97.9 77 18 111/66 97 Room Air 03/21/17 04:00 97.9 85 18 104/56 95 Room Air 03/21/17 00:00 97.0 77 18 105/64 100 Room Air 03/20/17 20:00 98.0 74 18 98/53 98 Room Air 03/20/17 18:57 98.2 03/20/17 18:09 98.2 03/20/17 15:53 98.2 76 21 107/63 96 Room Air 03/20/17 11:46 98.2 78 21 105/62 98 Room Air Intake and Output 03/20/17 03/21/17 19:00 07:00 Intake Total 1073 ml 985 ml Output Total 450 ml Balance 1073 ml 535 ml Intake IV Total 1073 ml 985 ml Output Other 450 ml # Voids 2 Laboratory Tests Test 03/20/17 17:50 03/21/17 06:25 03/21/17 06:28 Erythrocyte Sedimentation Rate 42 MM/HR (0-20) H C-Reactive Protein, Quantitative 1.6 mg/dL (< 0.5) H Sodium Level 142 mEQ/L (135-145) Potassium Level 3.7 mEQ/L (3.4-4.9) Chloride Level 109 mEQ/L (98-107) H Carbon Dioxide Level 24 mEQ/L (20-30) Anion Gap 9 (5-15) Blood Urea Nitrogen 7 mg/dL (7-23) Creatinine 0.8 mg/dL (0.5-0.9) Estimat Glomerular Filtration Rate > 60 mL/min (>60) Glucose Level 83 mg/dL (74-106) Calcium Level 9.1 mg/dL (8.6-10.2) Phosphorus Level 2.4 mg/dL (2.5-4.8) L Magnesium Level 1.6 mg/dL (1.7-2.5) L White Blood Count 12.1 K/UL (4.8-10.8) H Red Blood Count 3.87 M/UL (4.20-5.40) L Hemoglobin 9.7 G/DL (12.0-16.0) L Hematocrit 32.0 % (37.0-47.0) L Mean Corpuscular Volume 83 FL (80-99) Mean Corpuscular Hemoglobin 25.2 PG (27.0-31.0) L Mean Corpuscular Hemoglobin Concent 30.5 G/DL (32.0-36.0) L Red Cell Distribution Width 14.5 % (11.6-14.8) Platelet Count 245 K/UL (150-450) Mean Platelet Volume 9.3 FL (6.5-10.1) Neutrophils (%) (Auto) 70.6 % (45.0-75.0) Lymphocytes (%) (Auto) 18.3 % (20.0-45.0) L Monocytes (%) (Auto) 5.7 % (1.0-10.0) Eosinophils (%) (Auto) 5.0 % (0.0-3.0) H Basophils (%) (Auto) 0.4 % (0.0-2.0) Height (Feet): 5 Height (Inches): 7.00 Weight (Pounds): 203 Medications Current Medications Medications (Trade) Dose Ordered Sig/Xander Route PRN Reason Start Time Stop Time Status Last Admin Dose Admin Cefepime HCl/ Dextrose (Maxipime/D5W) 110 ml @ 220 mls/hr EVERY 12 HOURS IV 03/20/17 09:00 03/27/17 08:59 03/21/17 09:17 Dextrose STAT PRN IV Hypoglycemia 03/20/17 00:30 04/19/17 00:29 Diphenhydramine HCl 25 mg 25 mg Q6H PRN IVP Itching 03/20/17 19:30 04/19/17 19:29 03/21/17 09:15 Escitalopram Oxalate 20 mg 20 mg QHS ORAL 03/21/17 21:00 04/20/17 20:59 Heparin Sodium (Porcine) (Heparin 5000 units/ml) 5,000 units EVERY 12 HOURS SUBQ 03/20/17 09:00 04/19/17 08:59 03/21/17 09:16 Hydromorphone HCl (Dilaudid) 1 mg Q4H PRN IVP breakthrough pain 03/20/17 17:00 03/27/17 16:59 03/20/17 17:39 Hydromorphone HCl (Dilaudid) 2 mg Q2H PRN IVP Severe Pain (Pain Scale 7-10) 03/20/17 10:15 03/27/17 10:14 03/21/17 10:06 Levothyroxine Sodium (Synthroid) 25 mcg ACBREAKFAST IV 03/22/17 06:30 04/21/17 06:29 Magnesium Sulfate 100 ml @ 100 mls/hr Q1H IVPB 03/21/17 09:45 03/21/17 11:44 Magnesium Sulfate (Magnesium Sulfate 1gm/100ml) 100 ml @ 100 mls/hr Q1H IVPB 03/21/17 08:45 03/21/17 10:44 03/21/17 10:13 Ondansetron HCl (Zofran) 4 mg Q4H PRN IVP Nausea & Vomiting 03/20/17 07:30 04/19/17 07:29 03/20/17 08:04 Potassium Phosphate/Sodium Chloride (Potassium Phosphate/Sodium Chloride) 280 ml @ 46.667 mls/ hr ONCE ONCE IV 03/21/17 11:00 03/21/17 16:59 Sodium Chloride (Sodium Chloride 1000ml bag) 1,000 ml @ 125 mls/hr Q8H IVLG 03/20/17 16:15 04/19/17 16:14 03/21/17 05:27 Topiramate (Topamax) 200 mg BEDTIME ORAL 03/20/17 21:00 04/19/17 20:59 03/20/17 20:56 Zolpidem Tartrate 5 mg 5 mg QHS ORAL 03/20/17 21:00 9/9/17 20:59 03/20/17 20:56 Assessment/Plan Assessment/Plan (1) Intractable Abdominal pain (2) Small Bowel Obstruction (3) Ulcerative colitis (4) S/p Colectomy and Ileostomy placement Seen Dictated. BEE BAKER Mar 21, 2017 10:29
--- NOTE | 2017-03-21 10:55 | GI Progress Note ---
Assessment/Plan Problems: (1) Small bowel obstruction ICD Codes: K56.69 - Other intestinal obstruction SNOMED: 401738488 (2) Leukocytosis ICD Codes: D72.829 - Elevated white blood cell count, unspecified SNOMED: 910676523, 626791683 (3) H/O colostomy ICD Codes: Z98.890 - Other specified postprocedural states SNOMED: 637633412 Status: stable Status Narrative Discussed with Dr. Iverson. Assessment/Plan NGT removed today, no output fu surgical recs bowel decompression >> red pamela to drainage ordered upper GI SBFT maintain NPO + IVFs fu KUB ppi abx fu labs Subjective Subjective still has abdominal pain, but improved Objective Last 24 Hour Vital Signs Date Time Temp Pulse Resp B/P Pulse Ox O2 Delivery O2 Flow Rate FiO2 03/21/17 08:00 97.9 77 18 111/66 97 Room Air 03/21/17 04:00 97.9 85 18 104/56 95 Room Air 03/21/17 00:00 97.0 77 18 105/64 100 Room Air 03/20/17 20:00 98.0 74 18 98/53 98 Room Air 03/20/17 18:57 98.2 03/20/17 18:09 98.2 03/20/17 15:53 98.2 76 21 107/63 96 Room Air 03/20/17 11:46 98.2 78 21 105/62 98 Room Air Intake and Output 03/20/17 03/21/17 19:00 07:00 Intake Total 1073 ml 985 ml Output Total 450 ml Balance 1073 ml 535 ml Intake IV Total 1073 ml 985 ml Output Other 450 ml # Voids 2 Laboratory Tests Test 03/20/17 17:50 03/21/17 06:25 03/21/17 06:28 Erythrocyte Sedimentation Rate 42 MM/HR (0-20) H C-Reactive Protein, Quantitative 1.6 mg/dL (< 0.5) H Sodium Level 142 mEQ/L (135-145) Potassium Level 3.7 mEQ/L (3.4-4.9) Chloride Level 109 mEQ/L (98-107) H Carbon Dioxide Level 24 mEQ/L (20-30) Anion Gap 9 (5-15) Blood Urea Nitrogen 7 mg/dL (7-23) Creatinine 0.8 mg/dL (0.5-0.9) Estimat Glomerular Filtration Rate > 60 mL/min (>60) Glucose Level 83 mg/dL (74-106) Calcium Level 9.1 mg/dL (8.6-10.2) Phosphorus Level 2.4 mg/dL (2.5-4.8) L Magnesium Level 1.6 mg/dL (1.7-2.5) L White Blood Count 12.1 K/UL (4.8-10.8) H Red Blood Count 3.87 M/UL (4.20-5.40) L Hemoglobin 9.7 G/DL (12.0-16.0) L Hematocrit 32.0 % (37.0-47.0) L Mean Corpuscular Volume 83 FL (80-99) Mean Corpuscular Hemoglobin 25.2 PG (27.0-31.0) L Mean Corpuscular Hemoglobin Concent 30.5 G/DL (32.0-36.0) L Red Cell Distribution Width 14.5 % (11.6-14.8) Platelet Count 245 K/UL (150-450) Mean Platelet Volume 9.3 FL (6.5-10.1) Neutrophils (%) (Auto) 70.6 % (45.0-75.0) Lymphocytes (%) (Auto) 18.3 % (20.0-45.0) L Monocytes (%) (Auto) 5.7 % (1.0-10.0) Eosinophils (%) (Auto) 5.0 % (0.0-3.0) H Basophils (%) (Auto) 0.4 % (0.0-2.0) Height (Feet): 5 Height (Inches): 7.00 Weight (Pounds): 203 General Appearance: no apparent distress, alert Cardiovascular: normal rate Respiratory/Chest: normal breath sounds, no respiratory distress Abdominal Exam: normal bowel sounds, non tender, soft Extremities: normal range of motion Emi Pierre N.P. Mar 21, 2017 10:55
[2017-03-21] MEDS ORDERED: Potassium Phosphate 15 MM in NS 275 ML IV ONE (11:00)
--- NOTE | 2017-03-21 15:25 | Diagnostic Imaging Report ---
Indication: Abdominal distention. Bowel obstruction Comparison: None Findings: Gastrostomy upper GI/small bowel follow-through examination was performed. There are mild distention of small bowel noted. By one hour, contrast material was noted within the ileostomy bag. There is no evidence of bowel obstruction. However, it should be noted that the ileostomy was cannulated by a Long catheter prior to the procedure. A stricture or other issue at the ileostomy site may be masked by the presence of this catheter, which ideally should have been removed prior to small bowel series performed. At the end of the procedure, the Long catheter spontaneously fell out of the ileostomy. Findings were discussed with Dr. Yang. Impression: No evidence of bowel obstruction on the small bowel series with the caveat that the ileostomy was cannulated by a Long catheter.
[2017-03-21 16:00] VITALS: BP 115/68
--- NOTE | 2017-03-21 17:07 | General Progress Note ---
Assessment/Plan Problem List: (1) Small bowel obstruction ICD Codes: K56.69 - Other intestinal obstruction SNOMED: 103206202 (2) Leukocytosis ICD Codes: D72.829 - Elevated white blood cell count, unspecified SNOMED: 572202341, 889769049 (3) Ulcerative colitis ICD Codes: K51.90 - Ulcerative colitis, unspecified, without complications SNOMED: 77149780 (4) Anxiety ICD Codes: F41.9 - Anxiety disorder, unspecified SNOMED: 45230194 (5) Depression ICD Codes: F32.9 - Major depressive disorder, single episode, unspecified SNOMED: 20293112 (6) Hypothyroidism ICD Codes: E03.9 - Hypothyroidism, unspecified SNOMED: 53344062 Subjective Date patient seen: Mar 21, 2017 Time patient seen: 13:00 Constitutional: Reports: no symptoms HEENT: Reports: no symptoms Cardiovascular: Reports: no symptoms Respiratory: Reports: no symptoms Gastrointestinal/Abdominal: Reports: abdominal pain Genitourinary: Reports: no symptoms Neurologic/Psychiatric: Reports: no symptoms Endocrine: Reports: no symptoms Hematologic/Lymphatic: Reports: no symptoms Allergies: Coded Allergies: METRONIDAZOLE (Verified Allergy, Unknown, 03/19/17) Objective Last 24 Hour Vital Signs Date Time Temp Pulse Resp B/P Pulse Ox O2 Delivery O2 Flow Rate FiO2 03/21/17 16:00 98.2 77 20 115/68 97 Room Air 03/21/17 08:00 97.9 77 18 111/66 97 Room Air 03/21/17 04:00 97.9 85 18 104/56 95 Room Air 03/21/17 00:00 97.0 77 18 105/64 100 Room Air 03/20/17 20:00 98.0 74 18 98/53 98 Room Air 03/20/17 18:57 98.2 03/20/17 18:09 98.2 Intake and Output 03/20/17 03/21/17 19:00 07:00 Intake Total 1073 ml 985 ml Output Total 450 ml Balance 1073 ml 535 ml Intake IV Total 1073 ml 985 ml Output Other 450 ml # Voids 2 Laboratory Tests 03/20/17 17:50: Erythrocyte Sedimentation Rate 42H, C-Reactive Protein, Quantitative 1.6H 03/21/17 06:25: Sodium Level 142, Potassium Level 3.7, Chloride Level 109H, Carbon Dioxide Level 24, Anion Gap 9, Blood Urea Nitrogen 7, Creatinine 0.8, Estimat Glomerular Filtration Rate > 60, Glucose Level 83, Calcium Level 9.1, Phosphorus Level 2.4L, Magnesium Level 1.6L 03/21/17 06:28: White Blood Count 12.1H, Red Blood Count 3.87L, Hemoglobin 9.7L, Hematocrit 32.0L, Mean Corpuscular Volume 83, Mean Corpuscular Hemoglobin 25.2L, Mean Corpuscular Hemoglobin Concent 30.5L, Red Cell Distribution Width 14.5, Platelet Count 245, Mean Platelet Volume 9.3, Neutrophils (%) (Auto) 70.6, Lymphocytes (%) (Auto) 18.3L, Monocytes (%) (Auto) 5.7, Eosinophils (%) (Auto) 5.0H, Basophils (%) (Auto) 0.4 Height (Feet): 5 Height (Inches): 7.00 Weight (Pounds): 203 [place]on Denise M.D. Mar 21, 2017 17:07
--- NOTE | 2017-03-21 20:45 | Consultation ---
DATE OF CONSULTATION: 03/21/2017 PAIN MANAGEMENT CONSULTATION CONSULTING PHYSICIAN: Viktor Barahona M.D. REFERRING PHYSICIAN: Addy Weir M.D. PHYSICIAN SHOOK SPLICER: Funmi Alexander CHIEF COMPLAINT: Abdominal pain. HISTORY OF PRESENT ILLNESS: This is a 22-year-old female, who is being seen on the Med/Surg floor of [facility] for initial comprehensive pain management consultation. The patient reports that she has been having abdominal pain for many years due to ulcerative colitis. However over the past five days, the patient has been reporting acute 9/10 pain, describing as a cramping, sharp, and stabbing pain and was admitted under the care of Dr. Weir, seen by surgeon and architecture drafter, and found to have small bowel obstruction. The patient had been having ulcerative colitis, had a total colectomy, and ileostomy placement on 08/15/2016. Unable to have second surgery due to complications caused by scar tissue and found to have partial bowel obstruction of the small bowel, now has been placed in the ostomy, which has reduced the pressure, but continues to complain of pain. She had been on Dilaudid 2 mg IV every 2 hours as needed for severe pain and Dilaudid 1 mg IV every 4 hours as needed for moderate pain with no pain relief. Due to this, we were consulted so that the patient would have adequate pain control while here in the hospital. At this time, I discussed with the patient about narcotic use and that narcotic use reduces the bowel motility. She understands and agrees with the current plan. I will continue with the Dilaudid 2 mg IV every 2 hours as needed for severe pain and changing the Dilaudid 1 mg IV to every 4 hours as needed for breakthrough pain. The patient's care was discussed with the nurse at this time. PAST MEDICAL HISTORY: Hypothyroidism, depression, anxiety, and ulcerative colitis. PAST SURGICAL HISTORY: Colectomy. MEDICATIONS: Lexapro, Synthroid, Topamax, and Ambien. ALLERGIES: Flagyl. SOCIAL HISTORY: Denies smoking, tobacco, drinking alcohol, or IV drug abuse. REVIEW OF SYSTEMS: Denies rash, fever, chills, sweating, dizziness, drowsiness, blurred vision, sore throat, or change in her weight. No shortness of breath, chest pain, palpitations, or cough. No dysuria. She is complaining of abdominal pain with some nausea and vomiting. PHYSICAL EXAMINATION: GENERAL: Alert, awake, and oriented x3. VITAL SIGNS: Blood pressure 111/66, heart rate is 77, oxygen saturation is 97%, respiratory rate is 18, and temperature is 97.9 degrees Fahrenheit. Height is 5 feet 7 inches and weight is 203 pounds. HEENT: PERRLA. NECK: Range of motion is full in all directions. No tenderness to paracervical muscles. No adenopathy. LUNGS: Lungs are clear. HEART: Regular. ABDOMEN: Tenderness to palpation with ileostomy noted and red pamela placed. Bandages applied. BACK: Range of motion is decreased due to the patient's condition. No tenderness to paraspinal muscles, trapezius, or rhomboid muscles. EXTREMITIES: Upper extremity range of motion is full in all directions. Motor is intact. No cyanosis. No clubbing. No edema. Sensory is intact. Reflexes are not obtainable. No adenopathy. Lower extremity range of motion is full in all directions. Motor is intact. No cyanosis. No clubbing. No edema. Sensory is intact. Reflexes are not obtainable. No adenopathy. ASSESSMENT AND PLAN: This is a 22-year-old female with intractable abdominal pain, small bowel obstruction, ulcerative colitis, status post colectomy, and ileostomy placement. The patient will be continued on Dilaudid 2 mg IV every 2 hours as needed for severe pain and Dilaudid 1 mg intravenous will be changed every 4 hours as needed for breakthrough pain. The patient was discussed with the nurse at this time. The patient was discussed with Dr. Barahona and Dr. Barahona concurred. We will follow the patient. Thank you very much for the courtesy of this consultation. Viktor Barahona M.D. NAS Alexander DR: ANTONETTE JOB#: [id number] CC:
--- NOTE | 2017-03-22 14:34 | Discharge Summary ---
Discharge Summary Hospital Course Date of Admission Mar 19, 2017 at 23:22 Date of Discharge Mar 21, 2017 at 20:20 (AMA) Admitting Diagnosis SMALL BOWEL OBSTRUCTION Reason for Hospitalization: SBO HPI 21 year old with pmh of ulcerative colitis s/p laparoscopic total colectomy on 07/2016 s/p ileostomy revision 10/2016, hypothyroidism, and MDD/anxiety who presents with worsening abd pain. She states she's been having abdominal pain x2 days. Pain is sharp lower abdominal, 10/10 in intensity, nonradiating.Patient notes pain near her ostomy site. Patient was scheduled to have reanastomosis of her colon in October but was told by surgeon there is too much scar tissue and that she needed to lose weight first. The surgery had to be delayed. Patient notes nausea and vomiting. Denies fevers or chills. No other aggravating or relieving factors. Denies any other associated symptoms. Consultations Surgery GI Hospital Course Pt was admitted and seen by surgery. CT a/p showed evidence of bowel obstruction with transition point in RLQ near colostomy site. Pt had NGT placed and red rubber catheter placed in ileostomy for decompression w/ subseuqnet drainage of 1L. Prior to completion of further workup and mgmt, pt decided to leave AMA. She understood the risks involved. She stated that she would be going to [facility] where her primary surgeon is at. Discharge Condition Upon Discharge: critical Discharge Disposition Pt left AMA Discharge Diagnoses: (1) Small bowel obstruction (2) Ulcerative colitis (3) Hypothyroidism (4) Depression (5) Anxiety (6) Leukocytosis Trenton Denise M.D. Mar 22, 2017 14:34
--- NOTE | 2017-03-24 08:27 | Diagnostic Imaging Report ---
Indication: Abdominal pain Comparison: 03/20/17 Single view of the abdomen obtained There is a Long catheter projected over the right side of abdomen presumably within the ileostomy. No dilated small bowel noted within the mid abdomen. Impression: No change from the prior day. Dilated small bowel may be on the basis of obstruction or ileus
== END 2017-03-21 20:20 | disposition left against medical advice (07) | DRG 389 ==
LOC: EDBD 18:28 → EMR 21:07 → 4E 23:22 → EDBEDREQ 03-20 00:19
DX: K56.60 Unspecified intestinal obstruction (principal); K51.90 Ulcerative colitis, unspecified, without complications; E66.01 Morbid (severe) obesity due to excess calories; Z93.3 Colostomy status; E03.9 Hypothyroidism, unspecified; F32.9 Major depressive disorder, single episode, unspecified; F41.9 Anxiety disorder, unspecified; Z68.31 Body mass index [BMI] 31.0-31.9, adult; D72.829 Elevated white blood cell count, unspecified
CPT/HCPCS: 36415; 74000; 74020; 74177; 74250; 80048; 80053; 81003; 81025; 83690; 83735; 84100; 84702; 85007; 85025; 85651; 86140; J2405